=== PATIENT | female | born 1935 | race Caucasian/White ===

== ENCOUNTER 2016-04-25 14:19 | Outpatient (CLI) | payer OTHER ==
--- NOTE | 2016-04-25 15:32 | DIAGNOSTIC IMAGING REPORT ---
PROCEDURE: DEXA BONE DENSITY STUDY CLINICAL INDICATION: BREAST CA COMPARISON: None. FINDINGS: LUMBAR SPINE: Bone mineral density 0.860, T-score -1.7, osteopenia LEFT HIP: Bone mineral density 0.784, T-score -1.3, osteopenia LEFT FEMORAL NECK: Bone mineral density 0.675, T-score -1.67, osteopenia (T score greater or equal to -1.0 to: NORMAL) (T score from -1.1 to -2.4: OSTEOPENIA) (T score ess than or equal to -2.5: OSTEOPOROSIS) IMPRESSION: 1. Lumbar spine and left hip osteopenia 2. 10-year fracture risk: Major osteoporotic fracture 11%, hip fracture 4.6%.
== END 2016-04-25 23:00 ==
LOC: XR SRH 14:19
DX: M85.89 Other specified disorders of bone density and structure, multiple sites (principal); C50.911 Malignant neoplasm of unspecified site of right female breast